=== PATIENT | female | born 1995 | race Hispanic/Latino ===

== ENCOUNTER 2017-11-01 09:25 | Outpatient (CLI) | payer OTHER ==
--- NOTE | 2017-10-24 11:39 | History and Physical Report ---
History of Present Illness Date of examination: 10/24/17 Date of admission: Nov 01, 2017 Chief complaint: 22 yo at 39 weeks EGA with EDC of 11/03/17 in our chart since Jul. EDC by her original LMP is 11/10/17 but she was first seen by us in late second trimester. She is admitted for elective repeat c/s, this only complicated by pos chlamydia which was treated. A pos, Rub Im, GBS neg History of present illness: Remainder of H&P from [facility] and confirmed today CC: pelvic pain. History of Present Illness: This is a 22 years old female who presents with pelvic pain. She complains of nausea, vomiting and back pain, but denies dysuria, dysmenorrhea, dyspareunia, vaginal itching, vaginal discharge, vaginal odor, painful bowel movements, constipation, diarrhea and fever. Pain is located umbilicus and suprapubic. Duration of pain is 1-5 minutes. Episodes are unpredictable. OB Intake Ethnicity: Vital Signs Height: 66 in. Weight (lb): 202 BMI: 32.7 BP: 114/ 70 mm Hg Ur. Protein: Negative Ur. 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 no EDC Calculations LMP: 11/10/2017 EDC Confirmation: 11/10/2017 Gestational Age: 26 6/7 weeks Past History : 2 Term Births: 1 Premature Births: 0 Living Children: 1 Para: 1 Mult. Births: 0 Prev : 1 Prev. attempt? 0 Aborta: 0 Elect. Ab: 0 Spont. Ab: 0 Ectopics: 0 # 1 Delivery date: 04/04/2009 Weeks Gestation: 39 labor: no Delivery type: Hours of labor: 14 Anesthesia type: epidural Delivery location: [place], [place] Sex: Female weight: 6-7 Name: Janette Comments: Failure of dilatation/ descent Past Medical History: Negative Past Medical History Past Surgical History: (04/04/2009) Family History Summary: Other family member - Has No Family History of Ovarvian Cancer - Entered On: Other family member - Has No Family History of Colon Cancer - Entered On: 2016 Other family member - Has No Family History of Breast Cancer - Entered On: 08/10 Other family member - Has Family History of Hypertension - Entered On: 2016 Other family member - Has Family History of Diabetes - Entered On: 08/10/2017 Other family member - Has Family History of Coronary Heart Disease - Entered On : 08/10/2017 Social History: Patient is single/engaged unemployed Risk Factors: Smoked Tobacco Use: Current every day smoker Cigarettes: Yes -- 1/4 pack(s) per day, Year started: 2012 Drug use: no Alcohol use: no Past Medical History Surgery (Non-berry planter): (04/04/2009) Abnormal PAP: negative Uterine Anomaly: negative Social Hx: Patient is single/engaged unemployed Infection History Hx of STD: none Personal hx. of genital herpes: no Partner hx. of genital herpes: no Genetic History Congenital Heart Defect: Mom: no Dad: no Maggie Disease: Mom: no Dad: no Thalassemia Mom: no Dad: no Neural Tube Defect Mom: no Dad: no Down's Syndrome Mom: no Dad: no Paul-Sachs Mom: no Dad: no Sickle Cell Disease/Trait Mom: no Dad: no Hemophilia Mom: no Dad: no Muscular Dystrophy Mom: no Dad: no Cystic Fibrosis Mom: no Dad: no [place] Mom: no Dad: no Mental Retardation Mom: no Dad: no Fragile X Mom: no Dad: no Other Genetic/Chromosomal Disorder Mom: no Dad: no Child w/other defect Mom: no Dad: no Enviromental Exposures Xray Exposure: no Medication, drug, or alcohol use since LMP: no Chemical/Other Exposure: no Exposure to Cat Liter: no Hx of Parvovirus (Fifth Disease): no Active Medications (reviewed today): FORMULA 27-1 MG ORAL TABLET ( VIT-FE FUMARATE-FA) 1 po q day as directed PROMETHAZINE HCL 25 MG ORAL TABLET (PROMETHAZINE HCL) 1 po q 6 hrs prn nausea Current Allergies (reviewed today): LORTAB (HYDROCODONE-ACETAMINOPHEN TABS) (Critical) Laboratory Results Date/Time Collected: 08/10/2017 Routine Urinalysis Protein: Negative Glucose: Negative Urine HCG: positive Review of Systems General Complains of fatigue. Denies fever, chills, sweats, anorexia, weakness, malaise, weight loss and sleep disorder. Complains of vaginal discharge and pelvic pain. Denies incontinence, dysuria, hematuria, urinary frequency, amenorrhea, menorrhagia, abnormal vaginal bleeding, genital sores, decreased libido, painful periods, painful sex, urinary urgency, hot flashes, vaginal dryness, vaginal itching and vaginal odor. CV Denies chest pains, palpitations, syncope, dyspnea on exertion, orthopnea, PND and peripheral edema. Resp Denies cough, dyspnea at rest, excessive sputum, hemoptysis, wheezing and pleurisy. GI Denies nausea, vomiting, diarrhea, constipation, change in bowel habits, abdominal pain, melena, hematochezia, jaundice, gas/bloating, indigestion/ heartburn, dysphagia and odynophagia. Breast Complains of breast pain. Denies left breast lump, right breast lump, nipple discharge, bloody discharge from nipple, abnormal mammogram and breast enlargement. Psych Denies depression, anxiety, irritability and mood swings. PHYSICAL EXAM HEENT: normocephalic, no lesions or deformities Neck/Thyroid: supple, thyroid normal Skin no significant abnormal lesions or rashes Chest: respiratory effort normal, clear to auscultation Breasts: skin/areolae normal, no masses, no nipple discharge, no erythema/warmth /tenderness, and axillae normal. 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 Questions answered. Precautions given Orders: Urine Chemstrip (CPT-27460) Pap(<30yo) CT/NG rflx HR HPV ([id number])([id number]) (CPT-59217) UNHAIRING INSPECTOR Pelvic US (CPT-30777) Ofc Vst New 97790 (CPT-40923) Medications and Allergies Active Meds: Active Medications Citric Acid/Sodium Citrate (Bicitra) 30 ml PO ONCE ONE Stop: 10/24/17 11:35 Famotidine (Pepcid) 20 mg IV ONCE ONE Stop: 10/24/17 11:35 Cefazolin Sodium (Ancef/Sterile Water 2 Gm/20 Ml) 2 gm in 20 mls @ 80 mls/hr IV PREOP NR PRN Reason: Protocol Lactated Ringer's (Lactated Ringers) 1,000 mls @ 2,250 mls/hr IV PREOP AMAYA Stop: 10/25/17 12:27 Results All other labs normal.
[~2017-11-01 09:25] MED LIST: BICITRA PO ONE; LACTATED RINGERS 1,000 ML IV SCH; PEPCID IV ONE; PITOCin/NS 20 UNIT/1000ML DRIP 20 UNITS/1,000 ML BAG IV SCH; REGLAN IV ONE
[2017-11-01] MEDS ORDERED: LACTATED RINGERS 2,000 ML ONE (10:27)
[2017-11-01] MEDS ORDERED: LACTATED RINGERS 1,000 ML IV NR (11:00)
[2017-11-01] MEDS ORDERED: PITOCin/NS 20 UNIT/1000ML DRIP 20 UNITS/1,000 ML BAG IV SCH (11:00)
[2017-11-01] MEDS ORDERED: PEPCID IV NR (11:00)
[2017-11-01] MEDS ORDERED: BICITRA PO NR (11:00)
[2017-11-01] MEDS ORDERED: ANCEF/STERILE WATER 2 GM/20 ML 2 GM/20 ML SYRINGE IV NR (11:00)
[2017-11-01] MEDS ORDERED: REGLAN IV NR (11:00)
[2017-11-01 11:11] VITALS: BP 121/70
== END 2017-11-01 11:54 | disposition home or self-care (01) ==
LOC: OR 09:25 → APU 09:28 → UNDOADMIN 09:28 → EDSTATUS 11:30 → UNDODISIN 11:54 → OR 11:54
PROVIDERS: ATTEND Obstetrics & Gynecology
DX: O34.211 Maternal care for low transverse scar from previous cesarean delivery (principal); F17.210 Nicotine dependence, cigarettes, uncomplicated; Z98.890 Other specified postprocedural states; Z53.8 Procedure and treatment not carried out for other reasons
CPT/HCPCS: 59025; J7120

== ENCOUNTER 2017-11-03 09:39 | Inpatient (IN) | payer OTHER ==
--- NOTE | 2017-11-01 15:26 | History and Physical Report ---
History of Present Illness Date of examination: 11/01/17 History of present illness: Patient admitted for repeat section. Patient informed the risks of the surgery include bleeding possibly bleeding heavy enough to require blood transfusion, infection possible damage to bowel bladder ureter. Patient understands that due to her previous surgery she is an increased risks of adjacent organ damage. Patient's questions answered. Patient understands and desires to proceed. 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 no EDC Calculations LMP: 11/10/2017 EDC Confirmation: 11/10/2017 Past History : 2 Term Births: 1 Premature Births: 0 Living Children: 1 Para: 1 Mult. Births: 0 Prev : 1 Prev. attempt? 0 Aborta: 0 Elect. Ab: 0 Spont. Ab: 0 Ectopics: 0 # 1 Delivery date: 04/04/2009 Weeks Gestation: 39 labor: no Delivery type: Hours of labor: 14 Anesthesia type: epidural Delivery location: [place], [place] Sex: Female weight: 6-7 Name: Janette Comments: Failure of dilatation/ descent Past Medical History: Negative Past Medical History Past Surgical History: (04/04/2009) Family History Summary: Other family member - Has No Family History of Ovarvian Cancer - Entered On: Other family member - Has No Family History of Colon Cancer - Entered On: 2016 Other family member - Has No Family History of Breast Cancer - Entered On: 08/10 Other family member - Has Family History of Hypertension - Entered On: 2016 Other family member - Has Family History of Diabetes - Entered On: 08/10/2017 Other family member - Has Family History of Coronary Heart Disease - Entered On : 08/10/2017 Social History: Patient is single/engaged unemployed Risk Factors: Smoked Tobacco Use: Current every day smoker Cigarettes: Yes -- 1/4 pack(s) per day, Year started: 2012 Drug use: no Alcohol use: no Past Medical History Surgery (Non-obstetrician/gynecologist): (04/04/2009) Abnormal PAP: negative Uterine Anomaly: negative Social Hx: Patient is single/engaged unemployed Infection History Hx of STD: none Personal hx. of genital herpes: no Partner hx. of genital herpes: no Genetic History Congenital Heart Defect: Mom: no Dad: no Maggie Disease: Mom: no Dad: no Thalassemia Mom: no Dad: no Neural Tube Defect Mom: no Dad: no Down's Syndrome Mom: no Dad: no Paul-Sachs Mom: no Dad: no Sickle Cell Disease/Trait Mom: no Dad: no Hemophilia Mom: no Dad: no Muscular Dystrophy Mom: no Dad: no Cystic Fibrosis Mom: no Dad: no [place] Chorea Mom: no Dad: no Mental Retardation Mom: no Dad: no Fragile X Mom: no Dad: no Other Genetic/Chromosomal Disorder Mom: no Dad: no Child w/other defect Mom: no Dad: no Enviromental Exposures Xray Exposure: no Medication, drug, or alcohol use since LMP: no Chemical/Other Exposure: no Exposure to Cat Liter: no Hx of Parvovirus (Fifth Disease): no Current Allergies (reviewed today): LORTAB (HYDROCODONE-ACETAMINOPHEN TABS) (Critical) Past History Past Medical History: other (See HPI) Past Surgical History: section, other (See HPI) TAPER AND FLOATER History: other (See HPI) Family/Genetic History: other (See HPI) Social history: full code (See HPI), other - Obstetrical History : 2 Hx # Term Pregnancies: 1 Number of Pregnancies: 0 Spontaneous Abortions: 0 Induced : 0 Number of Living Children: 1 Medications and Allergies Allergies Allergy/AdvReac Type Severity Reaction Status Date / Time hydrocodone Allergy Vomiting Verified 11/01/17 10:46 - Physical Exam Breasts: Positive: deferred Cardiovascular: Regular rate Abdomen: Positive: normal appearance, soft Uterus: Positive: enlarged Extremities: Positive: edema - Obstetrical FHR: auscultation normal Results Result Diagrams: 11/03/17 10:09 All other labs normal. Assessment and Plan - Patient Problems (1) 39 weeks gestation of Current Visit: Yes Status: Acute (2) Previous delivery affecting , antepartum Current Visit: Yes Status: Acute Plan to address problem: Patient informed the risks of the surgery include bleeding possibly bleeding heavy enough to require blood transfusion, infection possible damage to bowel bladder ureter. All questions answered. Patient agrees to proceed (3) Smoker Current Visit: Yes Status: Chronic
[2017-11-03] MEDS ORDERED: REGLAN IV NR (10:00)
[2017-11-03] MEDS ORDERED: PEPCID IV NR (10:00)
[2017-11-03] MEDS ORDERED: ANCEF/STERILE WATER 2 GM/20 ML 2 GM/20 ML SYRINGE IV NR (10:00)
[2017-11-03] MEDS ORDERED: BICITRA PO NR (10:00)
[2017-11-03] MEDS: LACTATED RINGERS 1,000 ML IV SCH ×2 (10:34→11:21)
[2017-11-03 10:43] LABS: Basophils % (Auto) 0.2 % (0.0-1.8); Eosinophils # (Auto) 0.1 K/mm3 (0.0-0.4); Eosinophils % (Auto) 0.6 % (0.0-4.3); Hematocrit 36.8 % (30.3-42.9); Hemoglobin 12.6 gm/dl (10.1-14.3); Lymphocytes # (Auto) 1.7 K/mm3 (1.2-5.4); Lymphocytes % (Auto) 17.8 % (13.4-35.0); Mean Corpuscular HGB Conc 34 % (30-34); Mean Corpuscular Hemoglobin 31 pg (28-32); Mean Corpuscular Volume 89 fl (79-97); Monocytes # (Auto) 0.5 K/mm3 (0.0-0.8); Monocytes % (Auto) 5.3 % (0.0-7.3); Platelet Count 214 K/mm3 (140-440); Red Blood Count 4.12 M/mm3 (3.65-5.03); Red Cell Distribution Width 13.3 % (13.2-15.2)
--- NOTE | 2017-11-03 11:09 | Anesthesia Day of Surgery ---
Anesthesia Day of Surgery - Day of Surgery Patient Examined: Yes Patient H&P Reviewed: Yes Patient is NPO: Yes
[2017-11-03] MEDS ORDERED: ZOFRAN IV PRN (11:11)
[2017-11-03] MEDS ORDERED: NARCAN 0.4 MG/1 ML IV PRN (11:11)
--- NOTE | 2017-11-03 11:11 | Anesthesia Consultation ---
Anesthesia Consult and Med Hx Date of service: 11/03/17 - Airway Anesthetic Teeth Evaluation: Chipped (upper incisors) ROM Head & Neck: Adequate Mental/Hyoid Distance: Adequate Mallampati Class: Class III Intubation Access Assessment: Probably Good - Pulmonary Exam CTA: Yes - Cardiac Exam Cardiac Exam: RRR - Pre-Operative Health Status ASA Pre-Surgery Classification: ASA2 Proposed Anesthetic Plan: Spinal - Pulmonary Hx Smoking: Yes (3 cigs/day x 4 yrs) Hx Asthma: No - Cardiovascular System Hx Hypertension: No - Central Nervous System Hx Seizures: No Hx Psychiatric Problems: No - Endocrine Hx Renal Disease: No Hx Hypothyroidism: No Hx Hyperthyroidism: No - Hematic Hx Anemia: No Hx Sickle Cell Disease: No - Other Systems Hx Alcohol Use: No Hx Obesity: Yes
[2017-11-03] MEDS ORDERED: SUBLIMAZE ONE (11:18)
[2017-11-03] MEDS ORDERED: NACL 0.9% IR ONE (11:30)
[2017-11-03] MEDS ORDERED: WATER FOR IRRIG STERILE IR ONE (11:30)
[2017-11-03] MEDS ORDERED: SODIUM CHLORIDE FLUSH SYRINGE 10 ML IV NR (12:00)
--- NOTE | 2017-11-03 12:41 | Operative Report ---
Operative Report Operative Report: Date of procedure: 11/03/2017 Pre-operative diagnosis: Intrauterine at 39 weeks with previous section Post-operative diagnosis: Same Procedure name(s): Repeat low transverse section Surgeon: Eitan Eason MD Propellant Charge Zone Assembler: PITO Anesthesia: Spinal EBL: 600 mL Complications: None Findings: Normal uterus tubes and ovaries bilaterally. Female infant weight 6 lbs. 8 oz. Apgars 8 at 1 minute 9 at 5 Specimen(s): None Procedure: The patient was brought to the operating room. A spinal was placed without any complications. She was then placed in left lateral tilt. Prepped and draped in the usual sterile manner. After testing for adequate anesthesia level, a Pfannenstiel incision was made through her previous scar. This incision was taken down to the fascia. The fascia was then nicked in the midline. This incision was extended out laterally with Watson scissors. The fascia was then sharply and bluntly from the underlying rectus muscles. The rectus muscles were bluntly and sharply . The peritoneum was then entered with the eyelet operator's fingers. This incision was spread vertically with care not to damage the bladder below. The bladder flap was then formed sharply and bluntly with Metzenbaum scissors. The Henry self- retaining tractor was then placed without any difficulty. A transverse incision was made in lower uterine segment. This incision was extended laterally with the operators fingers. The amniotic sac was then entered bluntly with the eyelet operator's fingers. The infant was delivered from the vertex position. Bulb suction on the mother's abdomen. Cord was double clamped and cut. The infant was then passed to the nursery personnel who were in attendance. The above scores were given by the nursery personnel. The placenta was then bluntly removed. The uterus was then externalized and wiped clean the remaining products. The uterine incision was closed in layers. The first incision was closed in a locking manner using 0 Vicryl. This was followed by imbricating stitch also with 0 Vicryl. This closure was hemostatic. The bladder flap was copiously irrigated and found to be hemostatic. The pelvis was copiously irrigated and found to be hemostatic. The uterus was then placed back to the patient's abdomen. The retractors were removed. The rectus muscles were inspected and found to be hemostatic. The fascia was then closed in a running manner using 0 Vicryl. This incision was hemostatic irrigation Bovie. The skin was reapproximated with 4-0 Vicryl subcuticularly. The patient tolerated procedure well. Her urine was clear. The infant was admitted to the well baby nursery. The patient was accompanied to recovery room in good condition. Instrument count correct 3
[2017-11-03] MEDS ORDERED: MOTRIN PO PRN (12:53)
[2017-11-03] MEDS: PITOCin/NS 20 UNIT/1000ML DRIP 20 UNITS/1,000 ML BAG IV SCH ×2 (13:04→13:09)
[2017-11-03] MEDS ORDERED: MORPHINE IV PRN (13:36)
[2017-11-03] MEDS ORDERED: LANSINOH TP PRN (14:39)
[2017-11-03] MEDS ORDERED: SODIUM CHLORIDE FLUSH SYRINGE 10 ML IV SCH (14:39)
[2017-11-03] MEDS ORDERED: ANCEF/NS 1 GM/50 ML 1 GM/50 ML BAG IV SCH (14:39)
[2017-11-03] MEDS ORDERED: PITOCin/NS 20 UNIT/1000ML DRIP 20 UNITS/1,000 ML BAG IV SCH (14:39)
[2017-11-03] MEDS ORDERED: TUCKS PAD TP PRN (14:39)
[2017-11-03] MEDS: DILAUDID IV PRN ×2 (15:00→18:45)
[2017-11-03] MEDS ORDERED: D5LR 1,000 ML IV SCH (16:00)
[2017-11-03] MEDS: TORADOL IV SCH (22:11)
[2017-11-03] MEDS: ceFAZolin 1 GM in NACL 0.9% 20 ML IV SCH (22:11)
[2017-11-04 00:46] LABS: Hematocrit 34.7 % (30.3-42.9); Hemoglobin 11.9 gm/dl (10.1-14.3)
[2017-11-04] MEDS: PERCOCET 5/325 PO PRN ×4 (02:18→17:48)
[2017-11-04] MEDS: TORADOL IV SCH (04:00)
[2017-11-04] MEDS: ceFAZolin 1 GM in NACL 0.9% 20 ML IV SCH (05:51)
[2017-11-04] MEDS: MOTRIN PO PRN ×2 (06:31→13:39)
[2017-11-04] MEDS: PRENATAL VITAMIN PO SCH (08:27)
[2017-11-04] MEDS: FEOSOL PO SCH (08:27)
--- NOTE | 2017-11-04 11:37 | Progress Note ---
Assessment and Plan Patient doing well, no complaints. Arnoldo blanca, JOSÉ LUISSAF, H&H 11.9/34.7. encouraged advance activity and diet as tolerated today. continue postop pathway. - Patient Problems (1) delivery delivered Current Visit: Yes Status: Acute (2) Smoker Current Visit: Yes Status: Chronic Subjective - Subjective Date of service: 11/04/17 Principal diagnosis: Postop day #1 s/p repeat c/s Patient reports: appetite normal, voiding normally, pain well controlled, flatus , ambulating normally, no dizzy ambulation, no nauseated [place]: doing well, bottle feeding Objective - Vital Signs Latest vital signs: Vital Signs Temp Pulse Resp BP BP Pulse Ox 11/04/17 07:24 98.0 F 84 18 93/47 96 11/04/17 05:19 98.8 F 80 20 90/47 95 11/04/17 01:22 99.1 F 99 H 20 112/63 98 11/03/17 21:33 98.7 F 95 H 20 108/65 96 11/03/17 18:45 20 11/03/17 17:35 98.2 F 82 18 112/58 97 11/03/17 15:00 20 11/03/17 14:15 97.7 F 67 20 117/70 11/03/17 13:54 16 11/03/17 13:50 65 20 115/71 100 11/03/17 13:45 97.9 F 66 20 117/74 100 11/03/17 13:40 67 16 109/72 100 11/03/17 13:35 67 18 116/62 100 11/03/17 13:30 64 21 110/65 100 11/03/17 13:25 70 17 109/64 100 11/03/17 13:20 70 25 H 118/68 100 11/03/17 13:15 65 16 104/68 100 11/03/17 13:10 66 22 101/63 99 11/03/17 13:08 16 11/03/17 13:05 67 22 99/61 100 11/03/17 13:00 67 22 102/62 100 11/03/17 12:55 67 22 107/63 100 11/03/17 12:50 68 22 103/68 100 11/03/17 12:45 69 18 103/62 100 11/03/17 12:42 67 22 100 02/09/18 12:39 97.9 F Intake and Output 11/03/17 11/04/17 11/04/17 23:59 07:59 15:59 Intake Total 240 200 Output Total 400 750 Balance -160 -550 Intake: Oral 240 Intake, Free Water 200 Output: Urine 400 750 Indwelling Catheter 400 500 Void 250 Other: Total, Intake Amount 240 Total, Output Amount 400 250 - Exam Breasts: Present: normal Cardiovascular: Present: Regular rate Lungs: Present: Clear to auscultation, Normal air movement Abdomen: Present: normal appearance, soft Vulva: both: normal Uterus: Present: normal, firm, fundal height at umbilicus Extremities: Present: normal Incision: Present: normal, dry, dressed (rn to remove during AM care)
--- NOTE | 2017-11-04 12:43 | Progress Note ---
Subjective Date of service: 11/03/17 Principal diagnosis: Postop day #1 s/p repeat c/s Interval history: No complain. Block recede. Ambulating without any problem Objective - Constitutional Vitals: Vital Signs - 12hr 11/04/17 11/04/17 11/04/17 01:22 05:19 07:24 Temperature 99.1 F 98.8 F 98.0 F Pulse Rate 99 H 80 84 Respiratory 20 20 18 Rate Blood Pressure 112/63 90/47 93/47 O2 Sat by Pulse 98 95 96 Oximetry 11/04/17 11:39 Temperature 98.3 F Pulse Rate 90 Respiratory 20 Rate Blood Pressure 120/68 O2 Sat by Pulse 98 Oximetry - Labs CBC & Chem 7: 11/04/17 00:30
[2017-11-05] MEDS: PERCOCET 5/325 PO PRN ×2 (01:08→10:21)
[2017-11-05] MEDS: MOTRIN PO PRN (01:08)
[2017-11-05] MEDS: PRENATAL VITAMIN PO SCH (10:21)
[2017-11-05] MEDS: FEOSOL PO SCH (10:21)
--- NOTE | 2017-11-05 11:33 | Discharge Summary ---
Providers - Providers Date of Admission: 11/03/17 09:39 Date of discharge: 11/05/17 (desires d/c home) Attending physician: MELISSA LANCASTER 11/03/17 14:39 Consult to Supervisor Sewing Room [CONS] Routine Reason For Exam: Primary care physician: ERIKA IBANEZ Hospitalization Reason for admission: repeat c/s Condition: Good Procedures: repeat c/s Hospital course: uncomplicated repeat c/s and course Disposition: DC- TO HOME OR SELFCARE - Discharge Diagnoses (1) delivery delivered Status: Acute (2) Smoker Status: Chronic Core Measure Documentation - Palliative Care Palliative Care/ Comfort Measures: Not Applicable - Core Measures Any of the following diagnoses?: none Exam - Constitutional Vitals: Temp Pulse Resp BP Pulse Ox 98.4 F 77 20 105/57 97 11/05/17 07:33 11/05/17 07:33 11/05/17 07:33 11/05/17 07:33 11/05/17 07:33 General appearance: Present: no acute distress, well-nourished - EENT Eyes: Present: PERRL ENT: hearing intact, clear oral mucosa - Neck Neck: Present: supple, normal ROM - Respiratory Respiratory effort: normal Respiratory: bilateral: CTA - Cardiovascular Heart Sounds: Present: S1 & S2. Absent: rub, click - Extremities Extremities: pulses symmetrical, No edema Peripheral Pulses: within normal limits - Abdominal General gastrointestinal: Present: soft, non-tender, non-distended, normal bowel sounds Female genitourinary: Present: normal - Integumentary Integumentary: Present: clear, warm, dry - Musculoskeletal Musculoskeletal: gait normal, strength equal bilaterally - Psychiatric Psychiatric: appropriate mood/affect, intact judgment & insight - Neurologic Neurologic: CNII-XII intact, moves all extremities - Additional findings Additional findings: Fundus firm, lochia scant, incision dry and intact Plan Activity: advance as tolerated Diet: regular Wound: open to air, keep clean and dry Follow up with: ERIKA IBANEZ MD [Primary Care Provider] - 11/08/17 (Congratulations! Please keep your next scheuled appointment 11/08/17 for your incision check. Call [phone] for any questions or concerns.) Prescriptions: Ferrous Sulfate [Feosol 325 MG tab] 325 mg PO BID #60 tablet Ibuprofen [Motrin 800 MG tab] 800 mg PO Q6H PRN #30 tablet PRN Reason: Pain oxyCODONE /ACETAMINOPHEN [Percocet 5/325 mg] 1 - 2 tab PO Q4H PRN #30 tablet PRN Reason: Pain, Moderate
[2017-11-05 12:25] VITALS: BP 107/59
[2017-11-05] MEDS ORDERED: DIFLUCAN PO ONE (14:00)
== END 2017-11-05 13:05 | disposition home or self-care (01) | DRG 766 ==
LOC: APU 09:39 → OB 14:25
PROVIDERS: ADMIT Obstetrics & Gynecology; ATTEND Obstetrics & Gynecology
PROC: 10D00Z1 Extraction of Products of Conception, Low, Open Approach (ICD-10-PCS; principal; 2017-11-03)
DX: O34.211 Maternal care for low transverse scar from previous cesarean delivery (principal); Z37.0 Single live birth; O99.334 Smoking (tobacco) complicating childbirth; F17.210 Nicotine dependence, cigarettes, uncomplicated; Z3A.39 39 weeks gestation of pregnancy; Z88.6 Allergy status to analgesic agent; O99.214 Obesity complicating childbirth; E66.9 Obesity, unspecified; Z68.33 Body mass index [BMI] 33.0-33.9, adult
CPT/HCPCS: 36415; 85014; 85018; 85025; 86850; 86900; 86901; 99406; C1765; J0690; J1170; J1885; J2270; J2590; J3010; J7120